=== PATIENT | male | born 1995 | race Asian ===

== ENCOUNTER 2020-04-03 17:44 | Emergency (ER) | payer MEDICAID ==
[~2020-04-03] VITALS: Ht 172.7 cm; Wt 81.2 kg
[2020-04-03 17:50] VITALS: BP 98/57; Ht 172.7 cm; Wt 81.2 kg
== END 2020-04-03 19:09 | disposition home or self-care (01) ==
LOC: ED 17:44
DX: S66.911A Strain of unspecified muscle, fascia and tendon at wrist and hand level, right hand, initial encounter (principal); X50.1XXA Overexertion from prolonged static or awkward postures, initial encounter; Y93.89 Activity, other specified; Y92.89 Other specified places as the place of occurrence of the external cause; Y99.8 Other external cause status
CPT/HCPCS: Q0092

== ENCOUNTER 2020-06-26 09:50 | Emergency (ER) | payer MEDICAID ==
[~2020-06-26] VITALS: Ht 172.7 cm; Wt 78.9 kg
[2020-06-26 09:59] VITALS: Ht 172.7 cm; Wt 78.9 kg
[2020-06-26 11:29] VITALS: BP 124/65
== END 2020-06-26 11:29 | disposition home or self-care (01) ==
LOC: ED 09:50
DX: S60.052A Contusion of left little finger without damage to nail, initial encounter (principal); X58.XXXA Exposure to other specified factors, initial encounter; Y93.89 Activity, other specified; Y92.89 Other specified places as the place of occurrence of the external cause; Y99.8 Other external cause status